=== PATIENT | male | born 1970 | race Caucasian/White ===

== ENCOUNTER → 2016-07-09 | Outpatient (CLI) | payer OTHER ==
[2016-07-09 16:16] LABS: BASOPHIL % 0.4 % (0-2); PLATELET COUNT 217 x10^3mcL (130-400); RED CELL DISTRIBUTION WIDTH 13.1 % (11.5-14.5)
== END | disposition home or self-care (01) ==
LOC: LB 15:57
DX: E29.1 Testicular hypofunction (principal)
CPT/HCPCS: 84153; 84402; 84403

== ENCOUNTER → 2016-08-08 | Outpatient (CLI) | payer OTHER | END | disposition home or self-care (01) | LOC: LB 10:39 | DX: E29.1 Testicular hypofunction (principal) | CPT/HCPCS: 84403 ==

== ENCOUNTER → 2016-08-13 | Outpatient (CLI) | payer OTHER | END | disposition home or self-care (01) | LOC: LB 16:02 | DX: E29.1 Testicular hypofunction (principal); E34.9 Endocrine disorder, unspecified; Z13.9 Encounter for screening, unspecified | CPT/HCPCS: 82651; 82670; 84153; 84270; 84402; 84403 ==

== ENCOUNTER → 2016-09-28 | Outpatient (CLI) | payer OTHER ==
[2016-09-29 18:08] LABS: ESTRADIOL 11.6 pg/mL (7.6-42.6)
== END | disposition home or self-care (01) ==
LOC: LB 09:52
DX: E29.1 Testicular hypofunction (principal); E34.9 Endocrine disorder, unspecified; Z13.9 Encounter for screening, unspecified
CPT/HCPCS: 80327; 82670; 84270; 84402; 84403

== ENCOUNTER → 2016-12-28 | Outpatient (CLI) | payer OTHER ==
[2016-12-29 09:03] LABS: ESTRADIOL 33.8 pg/mL (7.6-42.6)
== END | disposition home or self-care (01) ==
LOC: LB 10:48
DX: E29.1 Testicular hypofunction (principal); E34.9 Endocrine disorder, unspecified; Z13.9 Encounter for screening, unspecified
CPT/HCPCS: 80327; 82670; 84270; 84403

== ENCOUNTER → 2017-07-12 | Outpatient (CLI) | payer OTHER | END | disposition home or self-care (01) | LOC: LB 08:22 | DX: Z00.00 Encounter for general adult medical examination without abnormal findings (principal); I10 Essential (primary) hypertension; N40.1 Benign prostatic hyperplasia with lower urinary tract symptoms; N13.8 Other obstructive and reflux uropathy; E66.3 Overweight; E29.1 Testicular hypofunction ==

== ENCOUNTER → 2018-02-18 | Outpatient (CLI) | payer OTHER ==
[2018-02-18 15:48] LABS: BASOPHIL % 0.4 % (0-2); PLATELET COUNT 218 x10^3mcL (130-400); RED CELL DISTRIBUTION WIDTH 13.9 % (11.5-14.5)
[2018-02-18 16:13] LABS: BILIRUBIN TOTAL 0.3 mg/dL (0.20-1.00); CALCIUM 9.3 mg/dL (8.5-10.1); CARBON DIOXIDE 29.4 mmol/L (21-32); CREATININE SERUM 1.6 mg/dL (0.7-1.3); POTASSIUM SERUM 4.6 mmol/L (3.5-5.1); TOTAL PROTEIN, SERUM 7.5 g/dL (6.4-8.2)
== END | disposition home or self-care (01) ==
LOC: LB 15:30
DX: E29.1 Testicular hypofunction (principal)

== ENCOUNTER → 2018-04-15 | Outpatient (CLI) | payer OTHER | END | disposition home or self-care (01) | LOC: MI 11:00 | PROC: BR39ZZZ Magnetic Resonance Imaging (MRI) of Lumbar Spine (ICD-10-PCS; principal; 2018-04-15) | DX: R20.2 Paresthesia of skin (principal); M51.36 Other intervertebral disc degeneration, lumbar region ==